=== PATIENT | female | born 1965 | race American Indian/Alaskan Native ===

== ENCOUNTER 2020-05-04 00:57 | Observation (INO) | payer OTHER ==
[2020-05-04 03:03] LABS: Basophils # (Auto) 0.1 K/mm3 (0.0-0.1); Basophils % (Auto) 1.1 % (0.0-1.8); Eosinophils # (Auto) 0.2 K/mm3 (0.0-0.4); Eosinophils % (Auto) 2.4 % (0.0-4.3); Hemoglobin 14.2 gm/dl (10.1-14.3); Lymphocytes # (Auto) 3.7 K/mm3 (1.2-5.4); Lymphocytes % (Auto) 39.7 % (13.4-35.0); Mean Corpuscular HGB Conc 33 % (30-34); Mean Corpuscular Volume 92 fl (79-97); Monocytes # (Auto) 0.8 K/mm3 (0.0-0.8); Monocytes % (Auto) 8.1 % (0.0-7.3); Red Blood Count 4.69 M/mm3 (3.65-5.03); Red Cell Distribution Width 15.2 % (13.2-15.2)
[2020-05-04 03:04] LABS: Platelet Count 226 K/mm3 (140-440)
[2020-05-04 04:21] LABS: Alanine Aminotransferase 12 units/L (7-56); Albumin 3.9 g/dL (3.9-5); BUN/Creatinine Ratio 16; Blood Urea Nitrogen 16 mg/dL (7-17); Calcium 9.1 mg/dL (8.4-10.2); Hemolysis Index 2
[2020-05-04 18:10] LABS: Creatine Kinase MB 2.2 ng/mL (0.0-4.0)
[2020-05-06 11:00] VITALS: BP 112/59
== END 2020-05-06 14:30 | disposition home or self-care (01) ==
LOC: ED 00:57 → 3A 05:30
PROVIDERS: ADMIT Internal Medicine; ATTEND Hospitalist
DX: J44.1 Chronic obstructive pulmonary disease with (acute) exacerbation (principal); M19.90 Unspecified osteoarthritis, unspecified site; K21.9 Gastro-esophageal reflux disease without esophagitis; F32.9 Major depressive disorder, single episode, unspecified; F17.210 Nicotine dependence, cigarettes, uncomplicated; Z79.899 Other long term (current) drug therapy; Z88.2 Allergy status to sulfonamides; Z91.013 Allergy to seafood; Z88.8 Allergy status to other drugs, medicaments and biological substances; Z71.6 Tobacco abuse counseling
CPT/HCPCS: 36415; 71046; 80053; 82550; 82553; 84484; 85025; 93005; 94640; 94644; 96365; 96366; 96367; 96372; 96375; 96376; 99291; 99406; G0378; J1170; J1200; J1644; J1885; J1956; J2270; J2405; J2930; J3475

== ENCOUNTER 2020-07-20 12:29 | Emergency (ER) | payer SELFPAY ==
--- NOTE | 2020-07-20 13:17 | Emergency Department Report ---
Blank Doc - Documentation Documentation: 55-year-old female that presents with CP and SOB. This initial assessment/diagnostic orders/clinical plan/treatment(s) is/are subject to change based on patient's health status, clinical progression and re- assessment by fellow clinical providers in the ED. Further treatment and workup at subsequent clinical providers discretion. Patient/guardians urged not to elope from the ED as their condition may be serious if not clinically assessed and managed. Initial orders include: 1- Patient sent to MAIN for further evaluation and treatment 2- cardiac protocol
[2020-07-20 13:46] VITALS: BP 123/80
--- NOTE | 2020-07-20 13:58 | XRay Report ---
CHEST PA AND LATERAL VIEWS INDICATION: MAIN. COMPARISON: 05/04/2020 FINDINGS: Support devices: None. Heart: Within normal limits. Lungs/Pleura: No acute pulmonary or pleural findings. Air fluid level is noted in the stomach which is mildly distended. IMPRESSION: 1. No acute findings. Signer Name: Jason Nunez MD Signed: 07/20/2020 1:54 PM Workstation Name: [id number]
[2020-07-20 14:00] LABS: Basophils # (Auto) 0.1 K/mm3 (0.0-0.1); Basophils % (Auto) 0.9 % (0.0-1.8); Eosinophils # (Auto) 0.1 K/mm3 (0.0-0.4); Eosinophils % (Auto) 1.5 % (0.0-4.3); Hematocrit 42.8 % (30.3-42.9); Hemoglobin 14.2 gm/dl (10.1-14.3); Lymphocytes # (Auto) 1.9 K/mm3 (1.2-5.4); Mean Corpuscular HGB Conc 33 % (30-34); Mean Corpuscular Volume 93 fl (79-97); Monocytes # (Auto) 0.4 K/mm3 (0.0-0.8); Monocytes % (Auto) 4.9 % (0.0-7.3); Platelet Count 278 K/mm3 (140-440); Red Blood Count 4.61 M/mm3 (3.65-5.03); Red Cell Distribution Width 14.7 % (13.2-15.2)
[2020-07-20 14:13] LABS: INR 0.97 (0.87-1.13)
[2020-07-20 14:14] LABS: Partial Thromboplastin Time 26.6 Sec. (24.2-36.6)
[2020-07-20 14:29] LABS: Alanine Aminotransferase 12 units/L (7-56); Albumin 3.6 g/dL (3.9-5); BUN/Creatinine Ratio 15; Blood Urea Nitrogen 15 mg/dL (7-17); Calcium 8.9 mg/dL (8.4-10.2); Hemolysis Index 4
[2020-07-20] MEDS ORDERED: oxyCODONE /ACETAMINOPHEN 5-325MG TAB PO ONE (19:27)
--- NOTE | 2020-07-20 19:43 | Emergency Department Report ---
HPI - General Chief Complaint: Chest Pain Time Seen by Provider: 07/20/20 13:16 - HPI HPI: This is a 55-year-old -[place] female who presents to the emergency department with 2 complaints. First, the patient says that she has been having bilateral knee pain that has been going on intermittently over the past year. More recently she says that it has gotten worse and the knees have been "giving out" and causing her to have some falls onto her knees. She walks with a cane. The patient says that she has "no cartilage" in the knees and "I need a knee replacement." Secondly, the patient complains of some intermittent left-sided chest pain that has been going on for the past few months. The patient says that she was here in April for a cardiac work-up. She says that the pain went away for about 1 week but then has returned and has been going on intermittently since. She has not taken anything for symptoms prior to presentation. She denies any fever, nausea, vomiting, back pain, diaphoresis. She has a past medical history of arthritis, COPD, GERD, hypertension and is an occasional tobacco smoker. She denies any illicit drug use. No recent travel or sick contacts at home. ED Past Medical Hx - Past Medical History Previous Medical History?: Yes Hx Hypertension: Yes Hx GERD: Yes Hx Arthritis: Yes Hx COPD: Yes Hx HIV: No - Surgical History Past Surgical History?: Yes Additional Surgical History: Right Eye - Social History Smoking Status: Never Smoker Substance Use Type: None - Medications Home Medications: Home Medications Medication Instructions Recorded Confirmed Last Taken Type levoFLOXacin [Levaquin] 750 mg PO QDAY #7 tablet 05/06/20 Unknown Rx methylPREDNISolone [Medrol 4MG 4 mg PO QAM #1 tab.ds.pk 05/06/20 Unknown Rx DOSEPAK (21 tabs)] oxyCODONE /ACETAMINOPHEN [Percocet 1 tab PO Q6H PRN #12 tab 07/20/20 Unknown Rx 5/325 mg] ED Review of Systems ROS: Stated complaint: CP/KNEE LEG PAIN Other details as noted in HPI Comment: All other systems reviewed and negative Constitutional: denies: chills, fever Eyes: denies: eye pain, vision change ENT: denies: ear pain, throat pain Respiratory: denies: cough, wheezing Cardiovascular: chest pain. denies: palpitations Gastrointestinal: denies: abdominal pain, vomiting Genitourinary: denies: dysuria, discharge Musculoskeletal: arthralgia. denies: back pain Skin: denies: rash, lesions Neurological: denies: numbness, paresthesias Physical Exam - Physical Exam Vital Signs: Vital Signs 07/20/20 13:43 Temperature 98.2 F Pulse Rate 72 Respiratory 18 Rate Blood Pressure 123/80 O2 Sat by Pulse 98 Oximetry Physical Exam: GENERAL: The patient is well-developed well-nourished. HENT: Normocephalic. Atraumatic. Patient has moist mucous membranes. EYES: Extraocular motions are intact. NECK: Supple. Trachea is midline. CHEST/LUNGS: Clear to auscultation. There is no respiratory distress noted. There is reproducible tenderness to palpation to the midsternal chest wall without crepitus or deformity. HEART/CARDIOVASCULAR: Regular. There is no tachycardia. There is no murmur. ABDOMEN: Abdomen is soft, nontender. Patient has normal bowel sounds. There is no abdominal distention. SKIN: Skin is warm and dry. NEURO: The patient is awake, alert, and oriented. The patient is cooperative. The patient has no focal neurologic deficits. Normal speech. MUSCULOSKELETAL: Bilateral anterior knee pain with right greater than left. Negative anterior and posterior drawer test and no laxity with valgus or varus stress of either knee. There is no limitation range of motion. ED Course Vital Signs 07/20/20 13:43 Temperature 98.2 F Pulse Rate 72 Respiratory 18 Rate Blood Pressure 123/80 O2 Sat by Pulse 98 Oximetry ED Medical Decision Making - Lab Data Result diagrams: 07/20/20 13:31 07/20/20 13:31 - EKG Data -: EKG Interpreted by Me EKG shows normal: sinus rhythm, axis, intervals, QRS complexes (Incomplete right bundle branch block, left anterior fascicular block), ST-T waves Rate: normal - EKG Data When compared to previous EKG there are: no significant change Interpretation: unchanged when compared t (05/04/20) - Radiology Data Radiology results: report reviewed, image reviewed interpreted by me: Chest x-ray does not show any acute process. There are no pleural effusions, obvious pneumonia and there is no pneumothorax. No significant cardiomegaly. X-ray of the right knee appeared show a right patellar fracture but radiology read as a congenital variant. X-ray of the left knee does not show any fracture, dislocation, or any acute process. - Medical Decision Making Regarding the patient's chest pain, this is something that has been going on for the past few months intermittently. On examination the heart and lung sounds are normal to auscultation and the pain is reproducible to palpation of the chest wall. EKG did not have any morphology consistent with ST elevation [place]. Chest x-ray did not show any acute process. She has a low heart and RUTH ANN score. Her contact information has been sent over to the [facility] and someone from their office should be contacting her shortly regarding close outpatient follow-up as part of our hospitals low risk chest pain protocol. Regarding the patient's knee pains, this is also been going on intermittently over the past year. Since the patient did complain of some recent falls onto her knees x-rays were completed. At first, the right patella appears to have a fracture but radiology reads it as a congenital variant. The patient was placed in a right knee immobilizer. She has been given referrals for 2 different local orthopedist. Vital signs have been reassuring throughout her ED course. She will return to the ER with any worsening of her symptoms or with any acute distress. Critical Care Time: No Critical care attestation.: If time is entered above; I have spent that time in minutes in the direct care of this critically ill patient, excluding procedure time. ED Disposition Clinical Impression: Chest pain Qualifiers: Chest pain type: unspecified Qualified Code(s): R07.9 - Chest pain, unspecified Patella fracture Qualifiers: Encounter type: initial encounter Fracture type: closed Fracture morphology: unspecified fracture morphology Fracture alignment: nondisplaced Laterality: right Qualified Code(s): S82.001A - Unspecified fracture of right patella, initial encounter for closed fracture Bilateral knee pain Qualifiers: Chronicity: chronic Qualified Code(s): M25.561 - Pain in right knee; M25.562 - Pain in left knee; G89.29 - Other chronic pain Disposition: DC-01 TO HOME OR SELFCARE Is pt being admited?: No Condition: Stable Instructions: Chest Pain (ED), Patellar Fracture (ED), Knee Pain (ED) Additional Instructions: Please follow-up with an orthopedist in the next few days regarding your knee pain and the patellar fracture. I have given you a referral for to local orthopedic groups, Dr. Jiménez and [facility]. I have sent your contact information to the [facility] and someone from their office should be contacting you shortly for close outpatient follow-up regarding your chest pains. Return to the emergency department with any worsening of your symptoms or with any acute distress. You have been prescribed a medication that is sedating and therefore should not be taken prior to driving, working, and responsible for children and in no way should be mixed with alcohol of any quantity. Prescriptions: oxyCODONE /ACETAMINOPHEN [Percocet 5/325 mg] 1 tab PO Q6H PRN #12 tab PRN Reason: Pain , Severe (7-10) Referrals: PRIMARY CAREMD [Primary Care Provider] - 3-5 Days SIMI JIMÉNEZ MD [Staff Physician] - 3-5 Days [facility] [Provider Group] - 3-5 Days GUY MARES MD [Staff Physician] - 3-5 Days Time of Disposition: 21:41 Heart Score - HEART Score History: Slightly suspicious EKG: Normal Age: 45-65 Risk factors: 1-2 risk factors Troponin: < normal limit HEART Score: 2 - Critical Actions Critical Actions: 0-3 pts:0.9-1.7%risk of adverse cardiac event.Candidate for discharge
--- NOTE | 2020-07-20 21:37 | XRay Report ---
BILATERAL KNEE 4 VIEW(S) INDICATION / CLINICAL INFORMATION: knee pain, falls COMPARISON: None available. FINDINGS: BONES / JOINT(S): Bilateral bipartite patella, congenital variant. Mild degenerative change bilateral ly, With medial joint space narrowing on the right. No fracture or dislocation of the right or left k nee. SOFT TISSUES: No significant abnormality involving the visualized soft tissues about the left or righ t knee. ADDITIONAL FINDINGS: None. Signer Name: Carlton Ceron MD Signed: 07/20/2020 9:32 PM Workstation Name: [id number]
== END 2020-07-20 21:55 | disposition home or self-care (01) ==
LOC: ED 12:29
DX: S82.001A Unspecified fracture of right patella, initial encounter for closed fracture (principal); R07.89 Other chest pain; M25.562 Pain in left knee; I10 Essential (primary) hypertension; K21.9 Gastro-esophageal reflux disease without esophagitis; M13.88 Other specified arthritis, other site; J44.9 Chronic obstructive pulmonary disease, unspecified; Z88.6 Allergy status to analgesic agent; Z88.2 Allergy status to sulfonamides; Z91.013 Allergy to seafood; X58.XXXA Exposure to other specified factors, initial encounter; Y93.89 Activity, other specified; Y92.89 Other specified places as the place of occurrence of the external cause; Y99.8 Other external cause status
CPT/HCPCS: 36415; 71046; 80053; 84484; 85025; 85610; 85730; 93005

== ENCOUNTER 2020-11-06 07:26 | Emergency (ER) | payer SELFPAY ==
[2020-11-06] MEDS ORDERED: ASPIRIN 325 MG TAB PO ONE (07:59)
--- NOTE | 2020-11-06 08:31 | XRay Report ---
CHEST 1 VIEW INDICATION: Chest Pain. COMPARISON: 07/20/2020 FINDINGS: SUPPORT DEVICES: None. HEART: Within normal limits. LUNGS/PLEURA: Minimal interstitial edema with a trace amount of fluid tracking along the minor fissur e. No appreciable effusion or consolidation. ADDITIONAL FINDINGS: None. IMPRESSION: 1. Pulmonary findings as above. Signer Name: Pete Manley MD Signed: 11/06/2020 8:26 AM Workstation Name: [id number]
[2020-11-06 08:59] LABS: Basophils # (Auto) 0.1 K/mm3 (0.0-0.1); Basophils % (Auto) 0.9 % (0.0-1.8); Eosinophils # (Auto) 0.1 K/mm3 (0.0-0.4); Eosinophils % (Auto) 1.6 % (0.0-4.3); Hematocrit 38.7 % (30.3-42.9); Hemoglobin 12.9 gm/dl (10.1-14.3); Lymphocytes # (Auto) 2.1 K/mm3 (1.2-5.4); Lymphocytes % (Auto) 26.2 % (13.4-35.0); Mean Corpuscular HGB Conc 33 % (30-34); Mean Corpuscular Volume 93 fl (79-97); Monocytes # (Auto) 0.8 K/mm3 (0.0-0.8); Monocytes % (Auto) 9.6 % (0.0-7.3); Platelet Count 318 K/mm3 (140-440); Red Blood Count 4.16 M/mm3 (3.65-5.03); Red Cell Distribution Width 14.5 % (13.2-15.2)
[2020-11-06 09:22] LABS: Alanine Aminotransferase 15 units/L (7-56); Albumin 3.7 g/dL (3.9-5); BUN/Creatinine Ratio 18; Blood Urea Nitrogen 16 mg/dL (7-17); Hemolysis Index 6
[2020-11-06 09:30] LABS: Bilirubin,Direct < 0.2 mg/dL (0-0.2)
[2020-11-06] MEDS ORDERED: ONDANSETRON 4 MG/2 ML INJ IV ONE (11:24)
[2020-11-06] MEDS ORDERED: HYDROmorphone 1 MG/1 ML INJ IV ONE ×2 (11:24→12:20)
[2020-11-06] MEDS ORDERED: PANTOPRAZOLE 40 MG INJ IV ONE (11:25)
--- NOTE | 2020-11-06 11:30 | Emergency Department Report ---
ED Chest Pain HPI - General Chief Complaint: Chest Pain Stated Complaint: SHORTNESS OF BREATH PUI?: No Time Seen by Provider: 11/06/20 11:20 Source: patient Mode of arrival: Wheelchair Limitations: No Limitations - History of Present Illness Initial Comments: Chief complaint: Chest pain bronchitis abdominal pain HPI: This is a 55-year-old female with history of COPD, GERD who presents with chest pain abdominal pain for several days. Patient was admitted to [facility] for treatment evaluation of COPD GERD chest pain. She was admitted from October 30 to November 01. She was discharged 5 days ago. She states that she is not getting any better. Her main concern today is right upper quadrant abdominal pain which radiates to the back. Pain is 10 out of 10 dull achy severe. She states that she has her typical chest pain which is unchanged. Chest pain is mild left-sided. Chest pain is persistent at rest. Right upper quadrant abdominal pain: Gradual onset, severe 10 out of 10. Dull achy in character. No association with food or movement. No vomiting or diarrhea. No fever. Pain is been constant for 2 days. MD Complaint: chest pain -: Gradual, month(s) (Several months) Onset: during rest Pain Location: left chest Pain Radiation: none Severity: mild Consistency: constant Improves With: nothing Worsens With: nothing Context: recent illness (Recent hospitalization for GERD COPD chest pain [facility] 5 days ago) re: other (Abdominal pain) Other Symptoms: other (Abdominal pain) Treatments Prior to Arrival: other (EMS transport) - Related Data Previous Rx's Medication Instructions Recorded Last Taken Type levoFLOXacin [Levaquin] 750 mg PO QDAY #7 tablet 05/06/20 Unknown Rx methylPREDNISolone [Medrol 4MG 4 mg PO QAM #1 tab.ds.pk 05/06/20 Unknown Rx DOSEPAK (21 tabs)] oxyCODONE /ACETAMINOPHEN [Percocet 1 tab PO Q6H PRN #12 tab 07/20/20 Unknown Rx 5/325 mg] Allergies Allergy/AdvReac Type Severity Reaction Status Date / Time ibuprofen [From Motrin] Allergy Hives Verified 11/06/20 07:54 sulfamethoxazole Allergy Hives Verified 11/06/20 07:54 [From Bactrim] trimethoprim [From Bactrim] Allergy Hives Verified 11/06/20 07:54 seafood Allergy Itching Uncoded 05/04/20 01:52 Heart Score - HEART Score History: Slightly suspicious EKG: Non-specific Age: 45-65 Risk factors: 1-2 risk factors Troponin: < normal limit HEART Score: 3 ED Review of Systems ROS: Stated complaint: SHORTNESS OF BREATH Other details as noted in HPI Comment: All other systems reviewed and negative Constitutional: denies: fever, malaise ENT: denies: dental pain Respiratory: denies: cough, shortness of breath Cardiovascular: chest pain Gastrointestinal: abdominal pain ED Past Medical Hx - Past Medical History Previous Medical History?: Yes Hx Hypertension: Yes Hx GERD: Yes Hx Arthritis: Yes Hx COPD: Yes Hx HIV: No - Surgical History Past Surgical History?: Yes Additional Surgical History: Right Eye - Social History Smoking Status: Current Some Day Smoker Substance Use Type: None - Medications Home Medications: Home Medications Medication Instructions Recorded Confirmed Last Taken Type levoFLOXacin [Levaquin] 750 mg PO QDAY #7 tablet 05/06/20 Unknown Rx methylPREDNISolone [Medrol 4MG 4 mg PO QAM #1 tab.ds.pk 05/06/20 Unknown Rx DOSEPAK (21 tabs)] oxyCODONE /ACETAMINOPHEN [Percocet 1 tab PO Q6H PRN #12 tab 07/20/20 Unknown Rx 5/325 mg] ED Physical Exam - General Limitations: No Limitations General appearance: alert, in no apparent distress - Head Head exam: Present: atraumatic, normocephalic - Eye Eye exam: Present: normal appearance - ENT ENT exam: Present: mucous membranes moist - Neck Neck exam: Present: normal inspection, full ROM - Respiratory Respiratory exam: Present: normal lung sounds bilaterally. Absent: respiratory distress, wheezes, rales, rhonchi - Cardiovascular Cardiovascular Exam: Present: regular rate, normal rhythm, normal heart sounds. Absent: systolic murmur, diastolic murmur, rubs, gallop - GI/Abdominal GI/Abdominal exam: Present: soft, normal bowel sounds. Absent: distended, tenderness, guarding, rebound - Extremities Exam Extremities exam: Present: normal inspection - Neurological Exam Neurological exam: Present: alert, oriented X3 - Psychiatric Psychiatric exam: Present: normal affect, normal mood - Skin Skin exam: Present: warm, dry, intact, normal color. Absent: rash ED Course Vital Signs 11/06/20 07:57 Temperature 98.4 F Pulse Rate 89 Respiratory 24 Rate Blood Pressure 116/70 O2 Sat by Pulse 94 Oximetry ED Medical Decision Making - Lab Data Result diagrams: 11/06/20 08:27 11/06/20 08:27 - EKG Data -: EKG Interpreted by Me EKG shows normal: sinus rhythm, QRS complexes, ST-T waves Rate: normal - EKG Data 11/06/20 11:50 EKG obtained 1137 EKG interpreted by me Normal sinus rhythm rate 90 bpm left axis deviation QTC normal for female gender no ST elevation no ST-T signs of ischemia/infarct - Radiology Data Radiology results: report reviewed Right upper quadrant ultrasound: Hepatic steatosis: No acute abnormality, common duct normal in size, gallbladder is normal Chest 1 view: Minimal interstitial edema with trace amount of fluid tracking along the minor fissure no effusion no consolidation - Medical Decision Making 1. Right upper quadrant abdominal pain: I suspected biliary colic however ultrasound revealed normal gallbladder. No indication of peritonitis. Patient ate a full meal in the emergency department without discomfort 2. Recurrent persistent chest pain likely due to GERD: Patient does not have previous history of heart disease. Chest radiograph revealed minor interstitial edema. No history of CHF. 3. Patient has history of COPD. No evidence of acute exacerbation. She does not have any current shortness of breath or work of breathing. According to electronic medical record, patient was admitted to this hospital for chest pain work-up. During that hospitalization cardiology inpatient consultation documented the patient reported normal cardiac stress test at [facility] [place] in January of this year. During April's hospitalization, she declined repeat cardiac stress test. 4. Pain management: I am concerned for drug-seeking behavior. At the end of my evaluation patient requested pain medication to be given "intravenously" As a result, I have elected not to give patient any type of opioid medication. I recommended [id number] therapy such as Tylenol. I also recommended diet changes. Patient is discharged home. She was given referral to our outpatient medicine physician. Critical care attestation.: If time is entered above; I have spent that time in minutes in the direct care of this critically ill patient, excluding procedure time. ED Disposition Clinical Impression: Chest pain, COPD (chronic obstructive pulmonary disease), Abdominal pain Disposition: - TO HOME OR SELFCARE Is pt being admited?: No Does the pt Need Aspirin: No Condition: Stable Instructions: Chest Pain (ED), Chronic Obstructive Pulmonary Disease (ED), Abdominal Pain, Adult Referrals: AMADO CEDEÑO MD [Staff Physician] - 3-5 Days
--- NOTE | 2020-11-06 12:13 | Ultrasound Report ---
US abdomen limited INDICATION / CLINICAL INFORMATION: right upper quadrant abd pain. COMPARISON: None available. FINDINGS: Echogenicity of the liver is diffusely increased, consistent with hepatic steatosis. No focal lesions . Gallbladder is normal, with no stones. Common duct is normal in size. IMPRESSION: 1. Hepatic steatosis. 2. No acute abnormalities. Signer Name: Bismark Strickland MD Signed: 11/06/2020 12:09 PM Workstation Name: [id number]
[2020-11-06] MEDS ORDERED: oxyCODONE /ACETAMINOPHEN 5-325MG TAB PO ONE (13:51)
[2020-11-06 16:11] VITALS: BP 119/78
== END 2020-11-06 12:40 | disposition home or self-care (01) ==
LOC: ED 07:26
DX: J44.1 Chronic obstructive pulmonary disease with (acute) exacerbation (principal); I10 Essential (primary) hypertension; K21.9 Gastro-esophageal reflux disease without esophagitis; M13.88 Other specified arthritis, other site
CPT/HCPCS: 36415; 71045; 76705; 80048; 80076; 83690; 83880; 84484; 85025; 93005; 96374; 96375; 96376; 99284; C9113; J1170; J2405

== ENCOUNTER 2020-11-07 10:28 | Emergency (ER) | payer SELFPAY ==
[2020-11-07] MEDS ORDERED: ASPIRIN 325 MG TAB PO ONE (10:32)
--- NOTE | 2020-11-07 11:07 | XRay Report ---
CHEST 1 VIEW INDICATION / CLINICAL INFORMATION: Chest Pain. FINDINGS: SUPPORT DEVICES: None. HEART / MEDIASTINUM: No significant abnormality. LUNGS / PLEURA: No significant pulmonary or pleural abnormality. No pneumothorax. ADDITIONAL FINDINGS: No significant additional findings. IMPRESSION: 1. No acute findings. Signer Name: Jonathon Amaral MD Signed: 11/07/2020 11:02 AM Workstation Name: [id number]
[2020-11-07 11:27] LABS: Basophils # (Auto) 0.1 K/mm3 (0.0-0.1); Basophils % (Auto) 1.4 % (0.0-1.8); Eosinophils # (Auto) 0.2 K/mm3 (0.0-0.4); Eosinophils % (Auto) 2.2 % (0.0-4.3); Hematocrit 38.7 % (30.3-42.9); Hemoglobin 12.8 gm/dl (10.1-14.3); Lymphocytes # (Auto) 1.8 K/mm3 (1.2-5.4); Lymphocytes % (Auto) 25.9 % (13.4-35.0); Mean Corpuscular HGB Conc 33 % (30-34); Mean Corpuscular Volume 92 fl (79-97); Monocytes # (Auto) 0.6 K/mm3 (0.0-0.8); Monocytes % (Auto) 8.1 % (0.0-7.3); Platelet Count 331 K/mm3 (140-440); Red Blood Count 4.19 M/mm3 (3.65-5.03); Red Cell Distribution Width 14.8 % (13.2-15.2)
[2020-11-07 11:37] LABS: BUN/Creatinine Ratio 14; Blood Urea Nitrogen 14 mg/dL (7-17); Calcium 9.1 mg/dL (8.4-10.2); Hemolysis Index 4
--- NOTE | 2020-11-07 12:42 | Emergency Department Report ---
ED Chest Pain HPI - General Chief Complaint: Chest Pain Stated Complaint: CHEST PAIN Time Seen by Provider: 11/07/20 11:56 Source: patient Mode of arrival: Ambulatory Limitations: No Limitations - History of Present Illness Initial Comments: 55-year-old female, history of COPD, presents to ED with complaint of right- sided chest and abdominal pain. Patient states she has been experiencing this pain for 6 days now. Patient was discharged from [place] on November 01 for COPD exacerbation. Patient was seen here in our ED on yesterday for this same compl aint of pain. Patient states pain is located in the right chest and right upper quadrant area. Pain is worse with palpation, movement. She had an ultrasound of the right upper quadrant done yesterday that showed evidence of fatty liver. Remainder of work-up was unremarkable, including labs and chest x-ray. Patient currently denies fever, nausea, vomiting, or diarrhea, dysuria, hematuria, urin sawyer frequency. Patient reports baseline cough and some mild shortness of breath secondary to her COPD, but nothing out of the ordinary. She reports she tested negative for Covid during her [facility] admission. Patient states she is having continued pain, has not attempted to follow-up with any outpatient referrals because she does not have insurance. MD Complaint: chest pain -: days(s) (6) Onset: during rest Pain Location: right chest Pain Radiation: abdomen (Right upper quadrant) Severity: moderate Quality: aching Consistency: constant Improves With: nothing Worsens With: palpation, movement re: denies: nausea, vomting, dyspnea Other Symptoms: cough. denies: fever, syncope, palpitations - Related Data Previous Rx's Medication Instructions Recorded Last Taken Type levoFLOXacin [Levaquin] 750 mg PO QDAY #7 tablet 05/06/20 Unknown Rx methylPREDNISolone [Medrol 4MG 4 mg PO QAM #1 tab.ds.pk 05/06/20 Unknown Rx DOSEPAK (21 tabs)] oxyCODONE /ACETAMINOPHEN [Percocet 1 tab PO Q6H PRN #12 tab 07/20/20 Unknown Rx 5/325 mg] methOCARBAMOL [Robaxin TAB] 500 mg PO Q8HR PRN #20 tablet 11/07/20 Unknown Rx Allergies Allergy/AdvReac Type Severity Reaction Status Date / Time ibuprofen [From Motrin] Allergy Hives Verified 11/06/20 07:54 sulfamethoxazole Allergy Hives Verified 11/06/20 07:54 [From Bactrim] trimethoprim [From Bactrim] Allergy Hives Verified 11/06/20 07:54 seafood Allergy Itching Uncoded 05/04/20 01:52 Heart Score - HEART Score History: Slightly suspicious EKG: Normal Age: 45-65 Risk factors: 1-2 risk factors Troponin: < normal limit HEART Score: 2 ED Review of Systems ROS: Stated complaint: CHEST PAIN Other details as noted in HPI Comment: All other systems reviewed and negative Constitutional: denies: chills, fever Respiratory: denies: cough, shortness of breath Cardiovascular: chest pain Gastrointestinal: abdominal pain. denies: nausea, vomiting, diarrhea Genitourinary: denies: dysuria, frequency, hematuria ED Past Medical Hx - Past Medical History Previous Medical History?: Yes Hx Hypertension: Yes Hx GERD: Yes Hx Arthritis: Yes Hx COPD: Yes Hx HIV: No - Surgical History Past Surgical History?: Yes Additional Surgical History: Right Eye - Social History Smoking Status: Never Smoker Substance Use Type: None - Medications Home Medications: Home Medications Medication Instructions Recorded Confirmed Last Taken Type levoFLOXacin [Levaquin] 750 mg PO QDAY #7 tablet 05/06/20 Unknown Rx methylPREDNISolone [Medrol 4MG 4 mg PO QAM #1 tab.ds.pk 05/06/20 Unknown Rx DOSEPAK (21 tabs)] oxyCODONE /ACETAMINOPHEN [Percocet 1 tab PO Q6H PRN #12 tab 07/20/20 Unknown Rx 5/325 mg] methOCARBAMOL [Robaxin TAB] 500 mg PO Q8HR PRN #20 tablet 11/07/20 Unknown Rx ED Physical Exam - General Limitations: No Limitations General appearance: alert, in no apparent distress, obese - Head Head exam: Present: atraumatic, normocephalic - Eye Eye exam: Present: normal appearance, EOMI - ENT ENT exam: Present: mucous membranes moist - Neck Neck exam: Present: normal inspection - Respiratory Respiratory exam: Present: normal lung sounds bilaterally, chest wall tenderness (right anterior and lateral chest wall). Absent: respiratory distress - Cardiovascular Cardiovascular Exam: Present: regular rate, normal rhythm - GI/Abdominal GI/Abdominal exam: Present: soft. Absent: distended, tenderness - Extremities Exam Extremities exam: Present: normal inspection - Back Exam Back exam: Absent: CVA tenderness (R), CVA tenderness (L) - Neurological Exam Neurological exam: Present: alert, oriented X3 - Psychiatric Psychiatric exam: Present: normal affect, normal mood - Skin Skin exam: Present: warm, dry, intact, normal color ED Course Vital Signs 11/07/20 11/07/20 11/07/20 10:32 12:45 14:10 Temperature 98.2 F Pulse Rate 82 69 78 Respiratory 22 14 16 Rate Blood Pressure 135/65 Blood Pressure 138/85 [Right] O2 Sat by Pulse 98 100 100 Oximetry ED Medical Decision Making - Lab Data Result diagrams: 11/07/20 10:55 11/07/20 10:55 - EKG Data -: EKG Interpreted by Me EKG shows normal: sinus rhythm, QRS complexes, ST-T waves Rate: normal - EKG Data When compared to previous EKG there are: no significant change - Radiology Data Radiology results: report reviewed, image reviewed - Medical Decision Making 55-year-old female presents to ED with chest and abdominal pain. Patient seen on yesterday for same. Ultrasound at that time was unremarkable. EKG shows no ST changes. Troponin from yesterday and today are both negative. Patient seems to have more chest wall tenderness with palpation. Low suspicion for PE, however D- dimer was sent and found to be within normal limits. Patient requested and was given a meal tray here in the ED. she ate it without any difficulty. Patient has been advised to follow-up outpatient. Prescriptions given for Robaxin. Return precautions given. - Differential Diagnosis Chest wall pain, PE, malingering Critical care attestation.: If time is entered above; I have spent that time in minutes in the direct care of this critically ill patient, excluding procedure time. ED Disposition Clinical Impression: Chest pain Disposition: DC-01 TO HOME OR SELFCARE Is pt being admited?: No Condition: Stable Instructions: Chest Wall Pain, [id number], Chest Pain (ED) Prescriptions: methOCARBAMOL [Robaxin TAB] 500 mg PO Q8HR PRN #20 tablet PRN Reason: Muscle Spasm Referrals: PRIMARY CARE, [Primary Care Provider] - 3-5 Days [facility] [Outside] - 3-5 Days [facility] [Provider Group] - 3-5 Days Time of Disposition: 13:29
[2020-11-07 13:14] LABS: INR 0.92 (0.87-1.13); Partial Thromboplastin Time 26.2 Sec. (24.2-36.6)
[2020-11-07 14:11] VITALS: BP 138/85
== END 2020-11-07 14:10 | disposition home or self-care (01) ==
LOC: ED 10:28
DX: R07.89 Other chest pain (principal)
CPT/HCPCS: 36415; 71045; 80048; 84484; 85025; 85379; 85610; 85730; 93005

== ENCOUNTER 2021-01-04 11:41 | Emergency (ER) | payer SELFPAY ==
[2021-01-04 11:59] VITALS: BP 138/71
--- NOTE | 2021-01-04 12:07 | Emergency Department Report ---
Chief Complaint: Extremity Problem,Nontraumatic Stated Complaint: RT KNEE PAINS Time Seen by Provider: 01/04/21 12:00 - HPI History of Present Illness: pt is a 55 yo female who presents to the ED with c/o chronic right knee pain for "over 10 years." she states it has been exacerbated over the last several weeks. she denies any acute fall or injury. she denies any numbness or weakness. pt was evaluated in the ED for the same complaint on 07/20/2020 and had a XR of the bilateral knees at that time which showed bilateral bipartite patella, congenital variant. mild degenerative change bilaterally, with medial joint space narrowing on the right. no fracture or dislocation of the right or left knee. no significant abnormality involving the visualized soft tissues about the left or right knee. no additional findings. pt never follow up with PCP or orthopedic. Vitals are stable On exam: No bony tenderness palpation of the right lower extremity, no edema of the joint, full range of motion of the right lower extremity, no swelling of the leg, no calf tenderness outpatient, no deformity, no increased warmth, no skin changes, neurovascularly intact Patient is presenting for chronic knee pain for over 10 years She has been seen in the emergency department previously for this complaint back in June 2020 and had a x-ray at that time She has not followed up with her primary care doctor or orthopedic She has had no acute trauma She has no clinical signs of gout, DVT, septic joint Patient given the appropriate resources and referred Discussed return precautions with patient Medical screen examination performed and there is no threat to life or limb at this time - Exam Vital Signs: Vital Signs 01/04/21 11:58 Temperature 98.3 F Pulse Rate 96 H Respiratory 18 Rate Blood Pressure 138/71 O2 Sat by Pulse 97 Oximetry MSE screening note: Focused history and physical exam performed. Due to findings the following was ordered: ED Disposition for MSE Clinical Impression: Chronic pain of right knee Disposition: Z-07 MED SCREENING EXAM-LEFT Is pt being admited?: No Does the pt Need Aspirin: No Condition: Stable Instructions: Chronic Knee Pain, Adult Additional Instructions: may take tylenol as needed for pain. may use ice pack, heating pad, rest, epsom salt, elevation of the leg. follow up with a primary care doctor. follow up with an orthopedic doctor. return to the emergency room for any new or worsening symptoms. Referrals: AMADO CEDEÑO MD [Staff Physician] - 3-5 Days [facility] [Provider Group] - 3-5 Days SIMI GAR MD [Staff Physician] - 3-5 Days [facility] [Provider Group] - 3-5 Days Time of Disposition: 12:11 Print Language: GREENLANDIC
== END 2021-01-04 12:35 | disposition left against medical advice (07) ==
LOC: ED 11:41
DX: M25.561 Pain in right knee (principal); Z53.21 Procedure and treatment not carried out due to patient leaving prior to being seen by health care provider